=== PATIENT | female | born 1980 ===

== ENCOUNTER 2021-11-01 13:58 | Inpatient (IN) ==
[2021-11-01] MEDS ORDERED: DIALYSIS (PERIT 1.5%) 1,500 ML 22.5 G/1,500 ML BAG INTRAPERIT SCH (18:00)
[2021-11-02] MEDS ORDERED: DIALYSIS (PERIT 2.5%) 2,000 ML 50 G/2,000 ML BAG INTRAPERIT SCH
== END 2021-11-06 13:32 | disposition home or self-care (01) | DRG 951 ==
LOC: 3NCARDOBS 13:58
PROVIDERS: ADMIT Internal Medicine Critical Care Medicine; ATTEND Internal Medicine Critical Care Medicine
DX: Z53.9 Procedure and treatment not carried out, unspecified reason (principal)